=== PATIENT | female | born 2005 | race American Indian/Alaskan Native ===

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

== ENCOUNTER 2023-04-05 20:54 | Emergency (ER) | payer BC, MEDICAID, OTHER ==
[2023-04-05 21:59] VITALS: BP 121/71; PULSE 48
[2023-04-05 22:16] LABS: BASOPHILS PERCENT AUTO 0.1 % (0.0-1.0); HEMATOCRIT 39.4 % (37.0-47.0); HEMOGLOBIN 13.2 g/dL (12.0-16.0); LYMPHOCYTES PERCENT AUTO 11.6 % (20.5-50.1); MEAN CORPUSCULAR HEMOGLOBIN 29.1 pg (27.0-34.0); MEAN CORPUSCULAR HGB CONC 33.5 g/dL (33.0-35.0); MEAN CORPUSCULAR VOLUME 86.8 fL (80-100); MONOCYTES PERCENT AUTO 6.3 % (2-8); PLATELET COUNT,PLT 252 10^3/uL (150-450); RED BLOOD CELL COUNT 4.54 10^6/uL (4.2-5.4); WHITE BLOOD CELL COUNT,WBC 15.3 10^3/uL (5.0-10.0)
[2023-04-05 22:35] LABS: A/G RATIO 0.9; ALBUMIN 3.9 g/dL (3.4-5.0); BILIRUBIN TOTAL 0.3 mg/dL (0.2-1.0); BUN/CREATININE RATIO 14.8 (No establ ref range); CREATININE 0.81 mg/dL (0.55-1.02); EST CRCL DRUG DOSING (CG) 108.63 mL/min; PROTEIN TOTAL,TP 8.2 g/dL (6.4-8.2)
[2023-04-05 23:20] LABS: BILIRUBIN,URINE NEGATIVE (NEGATIVE); GLUCOSE,URINE NEGATIVE (NEGATIVE); KETONES,URINE NEGATIVE (NEGATIVE); LEUKOCYTE ESTERASE,URINE SMALL (NEGATIVE); NITRITE,URINE NEGATIVE (NEGATIVE); OCCULT BLOOD,URINE LARGE (NEGATIVE); PROTEIN,URINE NEGATIVE (NEGATIVE); UROBILINOGEN,URINE 0.2 mg/dL (0.2-1.0)
[2023-04-05 23:24] LABS: APPEARANCE,URINE SLIGHTLY CLOUDY (CLEAR); COLOR,URINE STRAW (YELLOW)
[2023-04-05 23:27] LABS: AMORPHOUS SEDIMENT,URINE RARE /HPF (NOT SEEN); BACTERIA,URINE FEW /HPF (0-FEW/HPF); EPITHELIAL CELLS,URINE FEW /HPF (NOT SEEN); MUCUS,URINE FEW /LPF (NOT SEEN); WBC,URINE 75-100 /HPF (0-5/HPF)
[2023-04-05] MEDS: Take Home: Ciprofloxacin HCl 500 MG, 6 Tab Pack PO ONE (23:55)
== END 2023-04-06 00:09 | disposition home or self-care (01) ==
LOC: DL.ED 20:54
DX: N30.01 Acute cystitis with hematuria (principal)
CPT/HCPCS: 36415; 80053; 81001; 81003; 81025; 85025; 87086; 87088; 87186; 99283; A9270

== ENCOUNTER 2023-10-17 08:58 | Inpatient (IN) | payer MEDICAID ==
[2023-10-17] MEDS ORDERED: Misoprostol 400 MCG (4 X 100 MCG TAB) RECTAL PRN (10:05)
[2023-10-17] MEDS ORDERED: Methylergonovine 0.2 MG/1 ML Amp IM PRN (10:05)
[2023-10-17] MEDS ORDERED: Tranexamic Acid 1,000 MG in Sodium Chloride 0.9% 100 ML IV PRN (10:05)
[2023-10-17] MEDS ORDERED: Carboprost Tromethamine 250 MCG/1 ML Amp IM PRN (10:05)
[2023-10-17] MEDS ORDERED: Sodium Chloride 0.9% 10 ML Syringe FLUSH PRN (10:05)
[2023-10-17] MEDS ORDERED: Ondansetron 4 MG/2 ML SDV IVPUSH PRN (10:05)
[2023-10-17] MEDS ORDERED: fentaNYL 100 MCG/2 ML SDV IVPUSH PRN (10:05)
[2023-10-17] MEDS ORDERED: Acetaminophen 325 MG Tab PO PRN (10:05)
[2023-10-17 10:46] LABS: HEMATOCRIT 36.1 % (37.0-47.0); MEAN CORPUSCULAR HEMOGLOBIN 27.8 pg (27.0-34.0); MEAN CORPUSCULAR HGB CONC 33.2 g/dL (33.0-35.0); MEAN CORPUSCULAR VOLUME 83.6 fL (80-100); RED BLOOD CELL COUNT 4.32 10^6/uL (4.2-5.4); WHITE BLOOD CELL COUNT,WBC 10.3 10^3/uL (5.0-10.0)
[2023-10-17] MEDS: Lactated Ringers 1,000 ML IV SCH (11:09)
[2023-10-17] MEDS: Penicillin G Potassium 5 MILLUNITS in Sodium Chloride 0.9% 100 ML IV ONE (11:10)
[2023-10-17] MEDS: Penicillin G Potassium 3 MILLUNITS in Sodium Chloride 0.9% 100 ML IV SCH (15:23)
[2023-10-17] MEDS ORDERED: fentaNYL 100 MCG/2 ML SDV ONE (19:04)
[2023-10-17] MEDS: Lactated Ringers 1,000 ML IV ONE (19:05)
[2023-10-17] MEDS ORDERED: Phenylephrine HCl In 0.9% NaCl 1 MG/10 ML Syringe IVPUSH PRN (19:53)
[2023-10-17] MEDS ORDERED: ePHEDrine 50 MG/ML SDV IVPUSH PRN (19:53)
[2023-10-17] MEDS ORDERED: Ropivacaine 200 MG in Premix Bag 1 BAG EPIDUR SCH (20:00)
[2023-10-17] MEDS: Oxytocin/Normal Saline 30 UNIT/500 ML BAG IV SCH (21:05)
[2023-10-18] MEDS ORDERED: Oxytocin 10 Units/1 ML SDV IM PRN (03:47)
[2023-10-18] MEDS ORDERED: Tranexamic Acid 1,000 MG in Sodium Chloride 0.9% 100 ML IV PRN (03:47)
[2023-10-18] MEDS ORDERED: Misoprostol 400 MCG (4 X 100 MCG TAB) RECTAL PRN (03:47)
[2023-10-18] MEDS ORDERED: Carboprost Tromethamine 250 MCG/1 ML Amp IM PRN (03:47)
[2023-10-18] MEDS ORDERED: Measles, Mumps & Rubella Vaccine 0.5 ML SDV SUBCUT ONE (03:47)
[2023-10-18] MEDS ORDERED: Simethicone 80 MG Tab.Chew PO PRN (03:47)
[2023-10-18] MEDS ORDERED: Acetaminophen/oxyCODONE 325-5 MG Tab PO PRN (03:47)
[2023-10-18] MEDS ORDERED: Sodium Chloride 0.9% 10 ML Syringe FLUSH PRN (03:47)
[2023-10-18] MEDS: Lidocaine 1% 30 ML SDV INJECT ONE (06:44)
[2023-10-18] MEDS: Prenatal Multivitamin with Calcium/Folic Acid/Iron Tab PO SCH (08:10)
[2023-10-18] MEDS: Ibuprofen 800 MG Tab PO PRN (08:10)
[2023-10-18] MEDS: Witch Hazel Medicated Pads 100/Jar TOP PRN (08:10)
[2023-10-18] MEDS: Benzocaine/Menthol 20%-0.5% Spray 78 GM Cannister TOP PRN (08:10)
[2023-10-18] MEDS: Docusate Sodium 100 MG Cap PO PRN (08:10)
[2023-10-19] MEDS: Acetaminophen 325 MG Tab PO PRN (13:47)
[2023-10-20] MEDS: Diphtheria,Pertussis(Acell),Tetanus Vaccine 0.5 ML Syringe IM ONE (12:39)
[2023-10-20] MEDS: Measles, Mumps & Rubella Vaccine 0.5 ML SDV SUBCUT ONE (12:40)
[2023-10-20 14:57] VITALS: BP 122/66; PULSE 93
== END 2023-10-20 15:55 | disposition home or self-care (01) | DRG 768 ==
LOC: DL.OBCHECK 08:58 → DL.OB 10:22 → INTOOBSV 10:22 → OBSVTOIN 10-18 02:50
PROVIDERS: ADMIT Student in an Organized Health Care Education/Training Program; ATTEND Student in an Organized Health Care Education/Training Program
PROC: 10E0XZZ Delivery of Products of Conception, External Approach (ICD-10-PCS; principal; 2023-10-18)
PROC: 0DQR0ZZ Repair Anal Sphincter, Open Approach (ICD-10-PCS; 2023-10-18)
PROC: 3E0R3BZ Introduction of Anesthetic Agent into Spinal Canal, Percutaneous Approach (ICD-10-PCS; 2023-10-18)
PROC: 00HU33Z Insertion of Infusion Device into Spinal Canal, Percutaneous Approach (ICD-10-PCS; 2023-10-18)
PROC: 10907ZC Drainage of Amniotic Fluid, Therapeutic from Products of Conception, Via Natural or Artificial Opening (ICD-10-PCS; 2023-10-18)
DX: O99.824 Streptococcus B carrier state complicating childbirth (principal); Z37.0 Single live birth; O70.20 Third degree perineal laceration during delivery, unspecified; O69.81X0 Labor and delivery complicated by cord around neck, without compression, not applicable or unspecified; O62.3 Precipitate labor; O66.0 Obstructed labor due to shoulder dystocia; Z3A.39 39 weeks gestation of pregnancy; Z28.39 Other underimmunization status
CPT/HCPCS: 36415; 51702; 59409; 85027; 86592; 86850; 86900; 86901; 90471; 90707; 90715; A9270-GY; J2540; J2590; J3490; J7120